=== PATIENT | female | born 1985 | race Caucasian/White ===

== ENCOUNTER 2016-10-22 22:50 | Emergency (ER) | payer OTHER ==
[~2016-10-22] VITALS: Ht 157.5 cm; Wt 43.1 kg
[~2016-10-22 22:50] MED LIST: ACCUNEB SO1.25 MG/1; ACCUNEB SO1.25 MG/1 INH; ADVAIR 100-501 EACH; ADVAIR 100-501 EACH INH; ALBUTEROL2.5 MG/0.1 IH; ALBUTEROL2.5 MG/0.5 INH; ALBUTEROL2.5 MG/31 IH; ALBUTEROL2.5 MG/31 INH; AZITHROMYCIN 2250 MG PO; IBUPROFEN 400400 M2 PO; NICOTINE TRANSDE7 MG TRANSDERM; NORCO 5-325 TA1 EACH PO; PENICILLIN V P500 MG PO; PENICILLIN VK500 M1 PO; PREDNISONE 10 M10 M1 PO; PREDNISONE 20 M20 MG PO; PREDNISONE50 MG PO; PROAIR HFA8.5 GM IH; SINGULAIR 10 MG10 M1 PO; TRAMADOL 50 MG50 MG PO; ULTRAM 50MG TAB50 MG PO; VENTOLIN HFA 1818 GM INH
[2016-10-22] MEDS ORDERED: ADVAIR HFA115 MCG/21 INH (23:21)
[2016-10-22] MEDS ORDERED: ALBUTEROL2.5 MG/0.5 INH (23:21)
[2016-10-22] MEDS ORDERED: PROAIR HFA8.5 GM INH (23:24)
[2016-10-22] MEDS ORDERED: PREDNISONE 20 M20 MG PO (23:24)
[2016-10-22] MEDS ORDERED: NORCO 5-325 TA1 EACH PO (23:24)
[2016-10-22 23:38] VITALS: BP 112/70
[2016-11-23] MEDS ORDERED: PREDNISONE 20 M20 MG PO (14:03)
[2016-11-23] MEDS ORDERED: VENTOLIN HFA 1818 GM INH (14:03)
[2016-12-17] MEDS ORDERED: ALBUTEROL2.5 MG/0.5 INH (00:53)
[2016-12-17] MEDS ORDERED: PROAIR HFA8.5 GM INH (00:53)
[2016-12-17] MEDS ORDERED: PREDNISONE 10 M10 MG PO (00:53)
== END 2016-10-23 00:04 | disposition home or self-care (01) ==
LOC: ER 22:50
DX: J45.901 Unspecified asthma with (acute) exacerbation (principal); F10.99 Alcohol use, unspecified with unspecified alcohol-induced disorder

== ENCOUNTER 2016-11-01 18:13 | Emergency (ER) | payer OTHER ==
[~2016-11-01] VITALS: Ht 157.5 cm; Wt 43.1 kg
--- NOTE | ~2016-11-01 | EKG ---
[address] [address] ELECTROCARDIOGRAM REPORT Name: KELSEY GIMENEZ Room #: DEP [facility]#: [id number] Admission: 11/01/16 Attend Phys: Discharge: 11/01/16 Date of : 85 Report #: [id number] THIS REPORT FOR: //name// [facility] ED Test Date: 2016-11-01 Test Time: 18:52:42 Pat Name: KELSEY GIMENEZ Department: Room: Gender: F Packaging Engineer: VALERY : 1985 Requested By: lFy Nolasco Order Number: [id number] MD: Quintin Coombs Measurements Intervals [place] Rate: 100 P: 67 SC: 123 QRS: 61 QRSD: 83 T: 50 QT: 328 QTc: 423 Interpretive Statements Sinus tachycardia No previous ECG available for comparison Electronically Signed On 11-02-2016 16:05:45 [employer]MENTAL [employer]IL [employer]ST[employer] by Quintin Coombs [email or web address] <ELECTRONICALLY SIGNED> By: Quintin Coombs MD 11/02/16 1605 185 51 Qunitin Coombs MD /LILA
[~2016-11-01 18:13] MED LIST changes: +ADVAIR HFA115 MCG/21 INH; +PROAIR HFA8.5 GM INH
[2016-11-01 18:14] VITALS: BP 117/78
[2016-11-01 18:39] LABS: ABSOLUTE NEUTROPHILS 9.4 thou/uL (1.4-8.2); BASOPHILS 1.2 % (0.0-2.0); EOSINOPHILS 6.9 % (0.0-3.0); HEMATOCRIT 41.4 % (37.0-47.0); HEMOGLOBIN 13.9 gm/dL (12.0-15.0); LYMPHOCYTES 26.7 % (24.0-44.0); MCH 29.8 pg (26.0-34.0); MCHC 33.6 % (28.0-37.0); MCV 88.7 fL (80.0-100.0); MONOCYTES 7.9 % (1.0-8.0); PLATELET COUNT 434 thou/uL (150-400); POLYS 57.3 % (36.0-66.0); RBC 4.67 mil/uL (4.20-5.00); RDW 13.1 % (10.5-14.5); WBC 16.5 thou/uL (4.0-11.0)
[2016-11-01 18:40] LABS: MANUAL DIFF NO
[2016-11-01 18:49] LABS: CREATININE 0.8 mg/dL (0.6-1.3); POTASSIUM 3.5 mmol/L (3.5-5.1)
[2016-11-01] MEDS ORDERED: ACCUNEB SO1.25 MG/1 INH (19:01)
[2016-11-01] MEDS ORDERED: ADVAIR HFA115 MCG/21 INH (19:01)
[2016-11-01] MEDS ORDERED: PREDNISONE 20 M20 MG PO (19:01)
[2016-11-01] MEDS ORDERED: PROVENTIL HFA6.7 G1 INH (19:01)
[2016-11-23] MEDS ORDERED: PREDNISONE 20 M20 MG PO (14:03)
[2016-11-23] MEDS ORDERED: VENTOLIN HFA 1818 GM INH (14:03)
[2016-12-17] MEDS ORDERED: ALBUTEROL2.5 MG/0.5 INH (00:53)
[2016-12-17] MEDS ORDERED: PROAIR HFA8.5 GM INH (00:53)
[2016-12-17] MEDS ORDERED: PREDNISONE 10 M10 MG PO (00:53)
== END 2016-11-01 19:29 | disposition home or self-care (01) ==
LOC: ER 18:13
PROVIDERS: Physician Assistant
DX: J45.901 Unspecified asthma with (acute) exacerbation (principal); D72.828 Other elevated white blood cell count; R06.02 Shortness of breath